=== PATIENT | male | born 1980 | race Caucasian/White ===

== ENCOUNTER 2016-11-28 15:43 | Observation (INO) | payer OTHER ==
[~2016-11-28] VITALS: Ht 185.4 cm; Wt 90.7 kg
[2016-11-28] MEDS ORDERED: PROTONIX40 MG PO (16:01)
[2016-11-28] MEDS ORDERED: VYVANSE50 MG PO (16:01)
--- NOTE | 2016-11-28 16:40 | NUR ---
PT REC'D TO ROOM AMBULATORY. ACCOMPANIED BY ADMISSION STAFF AND . AAOX4. NO COMPLAINTS OF PAIN. REGULAR HEART RATE AND RHYTHM. LUNG SOUNDS CLEAR AND EQUAL BILAT. BOWEL SOUNDS ACTIVE X4 QUADRANTS. FERDINAND FUENTES, AT BEDSIDE. FERDINAND FUENTES, PALPATING NECK AND PT FLINCHED AND GUARDED WHEN LOWER ANTERIOR PORTION OF NECK PALPATED AND PT STATED THAT I DIDN'T HURT BUT IT DID AND IT MADE HIM "FEEL LIKE HE WAS GOING TO THROW UP." 20GUAGE IV STARTED TO L FOREARM. X1 ATTEMPT. ABLE TO FLUSH AND DRAW WITHOUT RESISTANCE. SALINE LOCKED AND SWAB CAP IN USE AT THIS TIME. BED LOW, CALL LIGHT IN REACH, DENIES NEEDS. CPOC.
[2016-11-28 17:32] LABS: ALBUMIN 3.9 g/dL (3.4-5.0); ALKALINE PHOSPHATASE 48 U/L (46-116); ALT (SGPT) 36 U/L (10-68); BILIRUBIN - TOTAL 1.23 mg/dL (0.2-1.3); CALC OSMOLALITY 281 mosm/kg (275-300); CALCIUM 9.1 mg/dL (8.5-10.1); CARBON DIOXIDE 30.4 mmol/L (21.0-32.0); CHLORIDE - SERUM 104 mmol/L (98-107); CREATININE - SERUM 1.1 mg/dL (0.6-1.3); GLUCOSE 93 mg/dL (74-106); PROTEIN - SERUM 6.9 g/dL (6.4-8.2); SODIUM 142 mmol/L (136-145); UREA NITROGEN 11 mg/dL (7-18); eGFR NON AFRICAN AMERICAN 80 mL/min (90-120)
[2016-11-28 17:35] LABS: AMYLASE - SERUM 50 U/L (25-115); LIPASE 89 U/L (73-393)
[2016-11-28 17:41] LABS: BASOPHILS 0.2 % (0-2); EOSINOPHILS 0.8 % (0-7); HEMATOCRIT 44.6 % (42.0-54.0); IMMATURE GRANULOCYTES 0.2 % (0-5); LYMPHOCYTES 20.8 % (15-50); MCH 33.3 pg (26.0-34.0); MCHC 35.9 g/dL (31.0-37.0); MCV 92.7 fL (80.0-100.0); MEAN PLATELET VOLUME 11.4 fL (7.4-10.4); MONOCYTES 14.5 % (2-11); NEUTROPHILS 63.5 % (40-80); PLATELET COUNT 174 10x3/uL (130-400); RBC 4.81 10x6/uL (4.20-6.10); RDW 12.4 % (11.5-14.5); WBC 5.3 10x3/uL (4.8-10.8)
[2016-11-28 18:48] VITALS: BP 119/79; BMI 26.4
[2016-11-28 19:00] VITALS: BP 109/66
--- NOTE | 2016-11-28 21:39 | NUR ---
PT SEEN AND ASSESSED EARLY THIS SHIFT. NO COMPLAINTS OF PAIN EXCEPT DISCOMFORT WHEN SWALLOWING SOLIDS. CAN SWALLOW LIQUIDS WITHOUT PROBLEMS. GAVE NITRO X 1 SL ORDERED BUT PT STATES THROAT DOESNT FEEL ANY DIFFERENT. WILL BE NPO AFTER MIDNIGHT FOR XRAY IN AM. SPOUSE AT BEDSIDE. CALL LIGHT IN REACH
[2016-11-29] VITALS: BP 104/61
[2016-11-29 04:00] VITALS: BP 102/59
--- NOTE | 2016-11-29 06:03 | NUR ---
PT HAS BEEN RESTING THIS SHIFT WITH FAMILY MEMBER AT BEDSIDE. NPO FOR XRAY THIS AM. CALL LIGHT IN REACH
[2016-11-29 06:06] LABS: ALBUMIN 3.5 g/dL (3.4-5.0); BASOPHILS 0.2 % (0-2); BILIRUBIN - TOTAL 1.86 mg/dL (0.2-1.3); CALCIUM 8.5 mg/dL (8.5-10.1); CARBON DIOXIDE 29.9 mmol/L (21.0-32.0); CREATININE - SERUM 1.2 mg/dL (0.6-1.3); EOSINOPHILS 1.7 % (0-7); HEMATOCRIT 45.2 % (42.0-54.0); IMMATURE GRANULOCYTES 0.2 % (0-5); LYMPHOCYTES 30.9 % (15-50); MCH 33.3 pg (26.0-34.0); MCHC 35.4 g/dL (31.0-37.0); MEAN PLATELET VOLUME 11.6 fL (7.4-10.4); MONOCYTES 11.5 % (2-11); NEUTROPHILS 55.5 % (40-80); PLATELET COUNT 170 10x3/uL (130-400); POTASSIUM - SERUM 3.9 mmol/L (3.5-5.1); PROTEIN - SERUM 6.6 g/dL (6.4-8.2); RBC 4.81 10x6/uL (4.20-6.10); RDW 12.5 % (11.5-14.5); WBC 4.2 10x3/uL (4.8-10.8)
--- NOTE | 2016-11-29 07:00 | NUR ---
PT REC'D FROM [facility]. RESTING IN BED WITH AT BEDSIDE. AAOX4. NO COMPLAINTS OF PAIN. STATES HE HAD NO TROUBLE EATING CLD LAST NIGHT. WILL ATTEMPT TO ADVANCE TODAY. BED LOW, CALL LIGHT IN REACH, DENIES NEEDS. CPOC.
[2016-11-29 08:24] VITALS: BP 109/64
--- NOTE | 2016-11-29 11:30 | NUR ---
AAO TIMES 4 SITTING UP IN BED. WATCHING TV. AWAITING CT SCAN. DENIES NEEDS AT PRESENT. BED LOW, CL IN REACH.
[2016-11-29 12:40] VITALS: BP 115/70
[2016-11-29 13:22] VITALS: Ht 185.4 cm; Wt 90.7 kg
--- NOTE | 2016-11-29 14:00 | NUR ---
NEW BAG OF PROTONIX HUNG PER JUL.
--- NOTE | 2016-11-29 14:34 | NUR ---
SPOKE WITH DR. MIDDLETON NURSE, [facility], AWAITING CALL BACK TO SEE ABOUT ADVANCING DIET.
[2016-11-29] MEDS ORDERED: CARAFATE1 G/10 ML PO (15:17)
[2016-11-29] MEDS ORDERED: PROTONIX40 MG PO (15:19)
--- NOTE | 2016-11-29 15:57 | NUR ---
DC INSTURCTIONS AND F/U APPOINTMENTS DISCUSSED AT THIS TIME. NO QUESTIONS OR CONCERNS VOICED. EXPLAINED TO PT AND THAT NEW PRESCRIPTIONS HAD BEEN E-SCRIBED TO THEIR PREFERED PHARMACY. PIV TO L FOREARM DC'D WITH CATHETER INTACT. PRESSURE AND DRESSING APPLIED. PT REFUSING WC SO ESCORTED OUT BY AMBULATING.
== END 2016-11-29 16:04 | disposition home or self-care (01) ==
LOC: D.MS 15:43 → OBSVTIME 15:43 → D.MS 11-29 16:04
PROVIDERS: Family Medicine; ADMIT Family Medicine
DX: R13.10 Dysphagia, unspecified (principal); K21.9 Gastro-esophageal reflux disease without esophagitis; F98.8 Other specified behavioral and emotional disorders with onset usually occurring in childhood and adolescence; G89.29 Other chronic pain; K44.9 Diaphragmatic hernia without obstruction or gangrene